=== PATIENT | male | born 1960 | race American Indian/Alaskan Native ===

== ENCOUNTER 2017-07-14 11:06 | Emergency (ER) | payer MEDICARE ==
[2017-07-14 11:18] VITALS: RESP 18; TEMP 98.1
[2017-07-14] MEDS ORDERED: Oxycodone/Acetaminophen 5/325 mg Tab PO STA (11:57)
--- NOTE | 2017-07-14 12:03 | ED PDOC ---
Arrival/HPI - General Chief Complaint: Lower Extremity Problem/Injury Time Seen by Provider: 07/14/17 11:22 Historian: Patient - History of Present Illness Narrative History of Present Illness (Text): 56 y/o male w/ pmhx of HTN? 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 Denying collapse / overlying rash or other joint pain . 07/14/17 12:03 Time/Duration: 24 hours Past Medical History - Infectious Disease Hx of Infectious Diseases: None - HEENT Hx HEENT Disorder: No - Renal Hx Renal Disorder: No - Musculoskeletal/Rheumatological Other/Comment: LEFT KNEE SURGERY AND BACK SURGERY - Psychiatric Hx Substance Use: No - Anesthesia Hx Anesthesia: No Hx Anesthesia Reactions: No Hx Malignant Hyperthermia: No Family/Social History - Physician Review Nursing Documentation Reviewed: Yes Family/Social History: No Known Family HX Smoking Status: Former Smoker Hx Alcohol Use: No Hx Substance Use: No Allergies/Home Meds Allergies/Adverse Reactions: Allergies No Known Allergies Allergy (Verified 07/14/17 11:18) Review of Systems - Physician Review All systems were reviewed & negative as marked: Yes - Review of Systems Constitutional: Normal Eyes: Normal ENT: Normal Respiratory: Normal Cardiovascular: Normal Gastrointestinal: Normal Genitourinary Male: Normal Musculoskeletal: Joint Swelling Skin: Normal Neurological: Normal Endocrine: Normal Hemo/Lymphatic: Normal Psychiatric: Normal Physical Exam Vital Signs Reviewed: Yes Vital Signs Temp Pulse Resp BP Pulse Ox 07/14/17 13:07 74 18 155/79 H 98 07/14/17 11:20 98.1 F 79 18 158/89 H 97 07/14/17 11:12 98.1 F 79 18 158/89 H 98 Temperature: Afebrile Blood Pressure: Normal Pulse: Regular Respiratory Rate: Normal Appearance: Positive for: Well-Appearing, Non-Toxic, Comfortable Pain Distress: None Mental Status: Positive for: Alert and Oriented X 3 - Systems Exam Head: Present: Atraumatic, Normocephalic Pupils: Present: PERRL Extroacular Muscles: Present: EOMI Conjunctiva: Present: Normal Mouth: Present: Moist Mucous Membranes Neck: Present: Normal Range of Motion Respiratory/Chest: Present: Clear to Auscultation, Good Air Exchange. No: Respiratory Distress, Accessory Muscle Use Cardiovascular: Present: Regular Rate and Rhythm, Normal S1, S2. No: Murmurs Abdomen: Present: Normal Bowel Sounds. No: Tenderness, Distention, Peritoneal Signs Back: Present: Normal Inspection Upper Extremity: Present: Normal Inspection. No: Cyanosis, Edema Lower Extremity: Present: Other (+ ballottement, + relative valgus laxity, + mildine patellar /lateral joint line ttp ). No: Edema Neurological: Present: GCS=15, CN II-XII Intact, Speech Normal, Motor Func Grossly Intact, Normal Sensory Function, Normal Cerebellar Funct, Norm Deep Tendon Reflexes, Gait Normal Skin: Present: Warm, Dry, Normal Color. No: Rashes Psychiatric: Present: Alert, Oriented x 3, Normal Insight, Normal Concentration Medical Decision Making ED Course and Treatment: 07/14/17 12:18 likely lateral collateral ligament tendinities , w/ inflammatory edema will d/c w/ R.I.C.E. directions/orthopedic f/u - RAD Interpretation Radiology Orders: 07/14/17 12:09 KNEE WITH PATELLA LEFT 3 VIEW [RAD] Stat - Medication Orders Current Medication Orders: Discontinued Medications Famotidine (Pepcid) 20 mg PO STAT STA Stop: 07/14/17 11:55 Last Admin: 07/14/17 12:24 Dose: 20 mg Ibuprofen (Motrin Tab) 800 mg PO STAT STA Stop: 07/14/17 11:55 Last Admin: 07/14/17 12:24 Dose: 800 mg Oxycodone/Acetaminophen (Percocet 5/325 Mg Tab) 1 tab PO STAT STA Stop: 07/14/17 11:58 Last Admin: 07/14/17 12:24 Dose: 1 tab MAR Pain Assessment Document 07/14/17 12:24 GMD (Rec: 07/14/17 12:24 [place] [facility] [id number] Pain Reassessment Is this a pain reassessment? No Sleep Is patient sleeping during reassessment? No Presence of Pain Presence of Pain Yes Pain Scale Used Pain Scale Used Numeric Location Left, Right or Bilateral Left Pain Location Body Site Knee Disposition/Present on Arrival - Present on Arrival Any Indicators Present on Arrival: No History of DVT/PE: No History of Uncontrolled Diabetes: No Urinary Catheter: No History of Decub. 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 Your pain shoudl improve in 1-[address] brown for an appointment or a provider within your network. Prescriptions: Famotidine [Pepcid] 20 mg PO BID PRN #20 tab PRN Reason: Dyspepsia Ibuprofen [Motrin] 600 mg PO Q6 PRN #50 tab PRN Reason: moderate pain oxyCODONE/Acetaminophen [Percocet 5/325 mg Tab] 1 ea PO Q8 PRN 3 Days #12 tab PRN Reason: Pain, Moderate (4-7) Referrals: Dudley Brown MD [Staff Provider] - Follow up with primary Forms: [employer] (Turkish)
[2017-07-14 13:14] VITALS: BP 155/79; PULSE 74; O2SAT 98
--- NOTE | 2017-07-14 18:28 | RAD ---
PROCEDURE: Left Knee Radiographs. HISTORY: Pain. COMPARISON: None. FINDINGS: BONES: No acute fracture or destructive bony lesion identified. JOINTS: Marked joint space narrowing seen in all 3 joint compartments with prominent osteophyte development and articular cortical sclerosis compatible with advanced degenerative joint disease. JOINT EFFUSION: None. OTHER FINDINGS: None. IMPRESSION: Advanced osteoarthritis, tricompartmental. No fracture or dislocation.
== END 2017-07-14 14:24 | disposition home or self-care (01) ==
LOC: ED 11:06
DX: M17.12 Unilateral primary osteoarthritis, left knee (principal); Z87.891 Personal history of nicotine dependence; M23.8X2 Other internal derangements of left knee

== ENCOUNTER 2017-07-31 17:54 | Observation (INO) | payer MEDICARE, OTHER ==
[2017-07-31 18:12] VITALS: BMI 38.6
[2017-07-31 18:41] LABS: BASO # 0.02 K/mm3 (0.0-2.0); BASO % 0.3 % (0.0-3.0); EOS # 0.1 (0.0-0.7); EOS % 1.4 % (1.5-5.0); GRAN # 4.14 (1.4-6.5); GRAN % 65.6 % (50.0-68.0); HEMATOCRIT 48.8 % (42.0-52.0); LYMPH # 1.5 (1.2-3.4); MEAN CELL VOLUME 93.7 fl (80.0-105.0); MEAN CORPUSCULAR HEMOGLOBIN 31.5 pg (25.0-35.0); MEAN CORPUSCULAR HGB CONC 33.6 g/dl (31.0-37.0); MEAN PLATELET VOLUME 11.3 fl (7.0-11.0); MONO # 0.6 (0.1-0.6); MONO % 9.7 % (1.0-6.0); RED CELL DISTRIBUTION WIDTH 13.7 % (11.5-14.5); WHITE BLOOD COUNT 6.3 10^3/ul (4.5-11.0)
[2017-07-31 18:49] LABS: ALB/GLOB RATIO 1.3 (1.1-1.8); ALKALINE PHOSPHATASE 75 U/L (38-126); ALT/SGPT 28 U/L (7-56); AST/SGOT 28 U/L (17-59); BILIRUBIN,TOTAL 0.8 mg/dL (0.2-1.3); BLOOD UREA NITROGEN 14 mg/dL (7-21); CALCIUM 9.2 mg/dL (8.4-10.5); CARBON DIOXIDE 30 mmol/L (21-33); CHLORIDE 105 mmol/L (98-107); GFR AFRICAN-AMERICAN > 60; GLUCOSE,RANDOM 92 mg/dL (70-110); POTASSIUM 4.1 mmol/L (3.6-5.0); SODIUM 142 mmol/L (132-148)
[2017-07-31 18:59] LABS: TROPONIN I < 0.01 ng/mL
[2017-07-31] MEDS ORDERED: Simethicone 80 mg Chewtab PO STA (21:35)
--- NOTE | 2017-07-31 21:47 | ED PDOC ---
Arrival/HPI - General Historian: Patient - History of Present Illness Time/Duration: Prior to Arrival, Other (20 hours) Symptom Onset: Gradual Symptom Course: Unchanged Quality: Aching Severity Level: 7, 8 Activities at Onset: Rest, Light Context: Home <Felicia Gamble - Last Filed: 07/31/17 23:00> <Jacob Roth Beverly - Last Filed: 08/02/17 06:47> - General Chief Complaint: Chest Pain Time Seen by Provider: 07/31/17 17:58 - History of Present Illness Narrative History of Present Illness (Text): 07/31/17 21:51 56 years old male with hx of lumbar surgery, smokes cigars, presents for left sided chest pain for past 20 hours. Pt states that its achy, rates it 7-8/10, constant, denies radiation of pain, sob, diaphoresis, palpitations, heartburn, syncope, nausea, vomiting, abdominal pain, headache, cough, urinary symptoms, diarrhea/constipation. Pt had a stress test in 2000, which was negative. Pt complains of going through a divorce, which is a difficult time for him. Family history of HTN (Felicia Gamble) Associated Symptoms (Text): 07/31/17 22:10 denies radiation of pain, sob, diaphoresis, palpitations, syncope, nausea, vomiting, abdominal pain, headache, cough, urinary symptoms, diarrhea/ constipation. Pt c/o mild dyspepsia and gas. (Felicia Gamble) Past Medical History - Provider Review Nursing Documentation Reviewed: Yes - Infectious Disease Hx of Infectious Diseases: None - Cardiac Hx Cardiac Disorders: No - Pulmonary Hx Respiratory Disorders: No - Neurological Hx Neurological Disorder: No - HEENT Hx HEENT Disorder: No - Renal Hx Renal Disorder: No - Endocrine/Metabolic Hx Endocrine Disorders: No - Hematological/Oncological Hx Blood Disorders: No - Integumentary Hx Dermatological Disorder: No - Musculoskeletal/Rheumatological Hx Musculoskeletal Disorders: Yes Hx Arthritis: Yes (l knee) Other/Comment: LEFT KNEE SURGERY; BACK SURGERY; left hand surgery - Gastrointestinal Hx Gastrointestinal Disorders: No - Genitourinary/Gynecological Hx Genitourinary Disorders: No - Psychiatric Hx Psychophysiologic Disorder: No Hx Substance Use: No - Surgical History Hx Joint Replacement: Yes Other/Comment: left hand; left knee - Anesthesia Hx Anesthesia: No Hx Anesthesia Reactions: No Hx Malignant Hyperthermia: No <Felicia Gamble - Last Filed: 07/31/17 23:00> Family/Social History - Physician Review Nursing Documentation Reviewed: Yes Family/Social History: Hypertension Smoking Status: cigar 2/wk Hx Alcohol Use: Yes Frequency of alcohol use: Socially Hx Substance Use: No <Felicia Gamble - Last Filed: 07/31/17 23:00> Allergies/Home Meds <Felicia Gamble - Last Filed: 07/31/17 23:00> <Jacob Roth Beverly - Last Filed: 08/02/17 06:47> Allergies/Adverse Reactions: Allergies No Known Allergies Allergy (Verified 07/14/17 11:18) Review of Systems - Physician Review All systems were reviewed & negative as marked: Yes - Review of Systems Constitutional: absent: Fatigue, Fevers Eyes: absent: Vision Changes ENT: absent: Hearing Changes Respiratory: absent: SOB, Cough Cardiovascular: Chest Pain. absent: Palpitations, Syncope Gastrointestinal: absent: Abdominal Pain, Constipation, Nausea, Vomiting Genitourinary Male: absent: Dysuria, Hematuria Musculoskeletal: absent: Back Pain Skin: absent: Rash Neurological: absent: Headache, Dizziness Endocrine: absent: Diaphoresis Psychiatric: absent: Anxiety <Felicia Gamble - Last Filed: 07/31/17 23:00> Physical Exam Vital Signs Reviewed: Yes Temperature: Afebrile Blood Pressure: Normal Pulse: Regular Respiratory Rate: Normal Appearance: Positive for: Well-Appearing Pain Distress: Mild Mental Status: Positive for: Alert and Oriented X 3 - Systems Exam Head: Present: Atraumatic, Normocephalic Pupils: Present: PERRL Extroacular Muscles: Present: EOMI Conjunctiva: Present: Normal Mouth: Present: Moist Mucous Membranes Pharnyx: No: ERYTHEMA Neck: Present: Normal Range of Motion Respiratory/Chest: Present: Clear to Auscultation. No: Respiratory Distress Cardiovascular: Present: Regular Rate and Rhythm, Normal S1, S2. No: Murmurs, Tachycardic Abdomen: Present: Normal Bowel Sounds. No: Tenderness, Distention Upper Extremity: No: Edema Lower Extremity: Present: NORMAL PULSES. No: Edema, CALF TENDERNESS Neurological: Present: GCS=15, Speech Normal Skin: Present: Warm, Dry Psychiatric: Present: Alert, Oriented x 3, Anxious <Felicia Gamble - Last Filed: 07/31/17 23:00> Vital Signs Temp Pulse Resp BP Pulse Ox 08/01/17 00:06 98.0 F 70 17 132/72 98 07/31/17 22:36 73 17 127/81 95 07/31/17 20:10 70 18 114/77 98 07/31/17 18:10 98.6 F 78 18 109/82 98 Medical Decision Making - Lab Interpretations I have reviewed the lab results: Yes Interpretation: All labs normal - RAD Interpretation : ED Physician - EKG Interpretation Interpreted by ED Physician: Yes Type: 12 lead EKG Comparison: No previous EKG avail. - Transfer of Care Patient signed out to Dr:: Carrie <Felicia Gamble - Last Filed: 07/31/17 23:00> <Jacob Roth - Last Filed: 08/02/17 06:47> ED Course and Treatment: 07/31/17 21:45 56 years old male, denies PMH, presents for chest pain: - CBC, CMP, EKG, Cardiac iso - CXR - Pepcid, Simethicone - HEART Score 3 - Reassess and dispo 07/31/17 22:10 Initial trop neg, given pt's age, + smoker, family hx of heart disease, will put in patient to Obs-Tele. 07/31/17 22:[address] Butler and medical radiation dosimetrist. (Felicia Gamble) 07/31/17 22:58 Pt seen and evaluated with medical radiation dosimetrist. Aware and agree with HPI, clinical findings, plan, and management. (Jacob Roth) - Lab Interpretations Narrative Lab Interpretation (Text): 07/31/17 22:13 Trop negx1 (Felicai Gamble) Lab Results: 07/31/17 18:10 07/31/17 18:10 Lab Results 07/31/17 18:10: Lipase 64 07/31/17 18:10: Sodium 142, Potassium 4.1, Chloride 105, Carbon Dioxide 30, Anion Gap 11, BUN 14, Creatinine 1.2, Est GFR ( Amer) > 60, Est GFR (Non- Af Amer) > 60, Random Glucose 92, Calcium 9.2, Total Bilirubin 0.8, AST 28, ALT 28, Alkaline Phosphatase 75, Lactate Dehydrogenase 522, Total Creatine Kinase 180, Troponin I < 0.01, Total Protein 8.0, Albumin 4.5, Globulin 3.5, Albumin/ Globulin Ratio 1.3 07/31/17 18:10: WBC 6.3, RBC 5.21, Hgb 16.4, Hct 48.8, MCV 93.7, MCH 31.5, MCHC 33.6, RDW 13.7, Plt Count 213, MPV 11.3 H, Gran % 65.6, Lymph % (Auto) 23.0, Young % (Auto) 9.7 H, Eos % (Auto) 1.4 L, Baso % (Auto) 0.3, Gran # 4.14, Lymph # 1.5, Young # 0.6, Eos # 0.1, Baso # 0.02 - RAD Interpretation Narrative RAD Interpretations (Text): 07/31/17 22:13 CXR neg for infiltrate (Felicia Gamble) Radiology Orders: 07/31/17 19:57 CXR [CHEST PORTABLE] [RAD] Stat - EKG Interpretation EKG Interpretation (Text): 07/31/17 22:15 EKG Nsr (Felicia Gamble) - Medication Orders Current Medication Orders: Discontinued Medications Acetaminophen (Tylenol 325mg Tab) 650 mg PO Q6H PRN PRN Reason: Headache Aspirin (Aspirin Chewable) 81 mg PO STAT STA Stop: 07/31/17 21:47 Last Admin: 07/31/17 21:52 Dose: 81 mg Aspirin (Ecotrin) 81 mg PO DAILY [facility] Last Admin: 08/01/17 10:54 Dose: 81 mg Famotidine (Pepcid) 40 mg PO STAT STA Stop: 07/31/17 21:36 Last Admin: 07/31/17 21:52 Dose: 40 mg Heparin Sodium (Porcine) (Heparin) 5,000 units SC Q12 MODE PRN Reason: Protocol Last Admin: 08/01/17 10:55 Dose: Not Given Non-Admin Reason: Patient Refused Ketorolac Tromethamine (Toradol) 30 mg IM STAT STA Stop: 07/31/17 20:04 Last Admin: 07/31/17 20:22 Dose: Ketorolac Tromethamine (Toradol) 30 mg IVP STAT STA Stop: 07/31/17 20:10 Last Admin: 07/31/17 20:25 Dose: 30 mg MAR Pain Assessment Document 07/31/17 20:25 IT (Rec: 07/31/17 20:26 IT [facility] [id number]) Pain Reassessment Is this a pain reassessment? No Sleep Is patient sleeping during reassessment? No Presence of Pain Presence of Pain Yes Pain Scale Used Pain Scale Used Numeric IVP Administration Document 07/31/17 20:25 IT (Rec: 07/31/17 20:26 IT [facility] [id number]) Charges for Administration # of IVP Administrations 1 Nitroglycerin (Nitrostat Sl Tab) 0.4 mg SL STAT STA Stop: 07/31/17 22:03 Last Admin: 07/31/17 22:13 Dose: 0.4 mg Nitroglycerin (Nitrostat Sl Tab) 0.4 mg SL STAT STA Stop: 08/01/17 01:28 Last Admin: 08/01/17 05:24 Dose: Pantoprazole Sodium (Protonix Ec Tab) 40 mg PO 0600 MODE Last Admin: 08/01/17 06:09 Dose: 40 mg Simethicone (Mylicon Chew Tab) 80 mg PO STAT STA Stop: 07/31/17 21:36 Last Admin: 07/31/17 21:52 Dose: 80 mg - PA / TOOL AND FIXTURE REPAIRER / Resident Statement RIAZ has reviewed & agrees with the documentation as recorded. RIAZ has examined the patient and agrees with the treatment plan. <Felicia Gamble - Last Filed: 07/31/17 23:00> - PA / TOOL AND FIXTURE REPAIRER / Resident Statement RIAZ has examined the patient and agrees with the treatment plan. <Jacob Roth - Last Filed: 08/02/17 06:47> Disposition/Present on Arrival - Present on Arrival Any Indicators Present on Arrival: No History of DVT/PE: No History of Uncontrolled Diabetes: No Urinary Catheter: No History of Decub. Ulcer: No History Surgical Site Infection Following: None - Disposition Have Diagnosis and Disposition been Completed?: Yes Disposition Time: 22:52 Patient Plan: Observation, Telemetry <Felicia Gamble - Last Filed: 07/31/17 23:00> <Jacob Roth - Last Filed: 08/02/17 06:47> - Disposition Diagnosis: Chest pain Disposition: HOSPITALIZED Condition: FAIR
[2017-08-01 00:08] VITALS: O2SAT 98
--- NOTE | 2017-08-01 00:16 | CP.PCM.HP ---
<Leana Dc - Last Filed: 08/01/17 02:25> History of Present Illness - History of Present Illness History of Present Illness: CC: I'm having chest pain" HPI: Patient is a 56 year old male with past medical history of chronic L knee pain, obesity presents the the ED for chest pain that started last night. Patient states that the pain is mid sternal, intermittent and does not radiate. Initially attributed the pain to gas because he has had this pain before, at that time when he burped the pain resolved. However the pain did not improve this time which is why he came in to be evaluated. Patient states that pain was 7-8/10 on pain scale prior to arrival. Received nitroglycerin SL in ED and chest pain is currently 2-3/10 on pain scale. Offers no other complaints at this time. Denies fevers, chills, N/V, diaphoresis, palpitations, sob, abdominal pain, changes in bowel habits, urinary symptoms. Denies any heavy lifting or trauma. ED Course: Toradol 30mg, ASA 81mg, Nitroglycerin 0.4mg SL, Simethicone 80mg, Pepcid 40mg PMD: None Allergies: NKDA Medications: Ibuprofen 600mg prn Medical History: Chronic Left Knee pain Surgical History: Shoulder surgery, lumbar surgery, hand surgery Social Hx: Smokes cigars 2x/week, denies alcohol or drug use; works for private [employer] Family Hx: Hypertension Present on Admission - Present on Admission Any Indicators Present on Admission: No Review of Systems - Review of Systems All systems: reviewed and no additional remarkable complaints except - Constitutional Constitutional: absent: Chills, Fever - EENT Eyes: absent: Blurred Vision Ears: absent: Dizziness - Cardiovascular Cardiovascular: Chest Pain. absent: Dyspnea, Edema, Lightheadedness, Palpitations - Respiratory Respiratory: Dyspnea. absent: Cough, Wheezing - Gastrointestinal Gastrointestinal: absent: Abdominal Pain, Bloating, Constipation, Diarrhea, Nausea, Vomiting - Genitourinary Genitourinary: absent: Dysuria - Neurological Neurological: absent: Dizziness, Numbness, Headaches - Psychiatric Psychiatric: absent: Change in Appetite Past Patient History - Infectious Disease Hx of Infectious Diseases: None - Past Social History Smoking Status: cigar 2/wk - CARDIAC Hx Cardiac Disorders: No - PULMONARY Hx Respiratory Disorders: No - NEUROLOGICAL Hx Neurological Disorder: No - HEENT Hx HEENT Problems: No - RENAL Hx Chronic Kidney Disease: No - ENDOCRINE/METABOLIC Hx Endocrine Disorders: No - HEMATOLOGICAL/ONCOLOGICAL Hx Blood Disorders: No - INTEGUMENTARY Hx Dermatological Problems: No - MUSCULOSKELETAL/RHEUMATOLOGICAL Hx Musculoskeletal Disorders: Yes Hx Arthritis: Yes (l knee) Other/Comment: LEFT KNEE SURGERY; BACK SURGERY; left hand surgery - GASTROINTESTINAL Hx Gastrointestinal Disorders: No - GENITOURINARY/GYNECOLOGICAL Hx Genitourinary Disorders: No - PSYCHIATRIC Hx Psychophysiologic Disorder: No Hx Substance Use: No - SURGICAL HISTORY Hx Joint Replacement: Yes Other/Comment: left hand; left knee - ANESTHESIA Hx Anesthesia: No Hx Anesthesia Reactions: No Hx Malignant Hyperthermia: No Meds Allergies/Adverse Reactions: Allergies Allergy/AdvReac Type Severity Reaction Status Date / Time No Known Allergies Allergy Verified 07/14/17 11:18 Physical Exam - Constitutional Appears: Well, No Acute Distress Additional comments: Obese - Head Exam Head Exam: ATRAUMATIC, NORMAL INSPECTION - Eye Exam Eye Exam: EOMI, Normal appearance Pupil Exam: NORMAL ACCOMODATION, PERRL - ENT Exam ENT Exam: Mucous Membranes Moist - Neck Exam Neck exam: Positive for: Full Rom - Respiratory Exam Respiratory Exam: Clear to Auscultation Bilateral, NORMAL BREATHING PATTERN. absent: Rales, Rhonchi, Wheezes - Cardiovascular Exam Cardiovascular Exam: REGULAR RHYTHM, +S1, +S2. absent: Systolic Murmur - GI/Abdominal Exam GI & Abdominal Exam: Normal Bowel Sounds, Soft. absent: Guarding, Rebound, Rigid, Tenderness - Extremities Exam Extremities exam: Positive for: normal inspection, pedal pulses present. Negative for: calf tenderness - Back Exam Back exam: NORMAL INSPECTION. absent: CVA tenderness (L), CVA tenderness (R) - Neurological Exam Neurological exam: Alert, Normal Gait, Oriented x3 - Psychiatric Exam Psychiatric exam: Normal Affect, Normal Mood - Skin Skin Exam: Dry, Normal Color, Warm Results - Vital Signs Recent Vital Signs: Last Vital Signs Temp 98.0 F 08/01/17 00:06 Pulse 70 08/01/17 00:06 Resp 17 08/01/17 00:06 BP 132/72 08/01/17 00:06 Pulse Ox 98 08/01/17 00:06 - Labs Result Diagrams: 07/31/17 18:10 07/31/17 18:10 Assessment & Plan - Assessment and Plan (Free Text) Assessment: 56 year old male with past medical history of chronic L knee pain, obesity presents the the ED for mid-sternal chest pain that started last night. Plan: 1. Chest pain r/o ACS -Stable, afebrile -Place on observation, Monitor on telemetry -Currently asymptomatic -EKG showed NSR 75bpm with low voltage -First troponin <0.01, Trend troponins q8H x 2 -Continue ASA 81mg daily -F/U Lipid panel, hga1c, TSH/Free T4 -Echo ordered -CXR completed, f/u official read -Cardiology on consult, f/u recommendations GI/DVT ppx -Protonix 40mg PO daily -SCDs <Chacha Butler - Last Filed: 08/01/17 02:55> Results - Vital Signs Recent Vital Signs: Last Vital Signs Temp 98.0 F 08/01/17 00:06 Pulse 70 08/01/17 00:06 Resp 17 08/01/17 00:06 BP 132/72 08/01/17 00:06 Pulse Ox 98 08/01/17 00:06 - Labs Result Diagrams: 07/31/17 18:10 07/31/17 18:10 Attending/Attestation - Attestation I have personally seen and examined this patient.: Yes I have fully participated in the care of the patient.: Yes I have reviewed all pertinent clinical information: Yes Notes (Text): 08/01/17 02:53 Agree with documentation and orders placed.
[2017-08-01 03:07] VITALS: RESP 20
[2017-08-01] MEDS ORDERED: Pantoprazole 40 mg EC Tab PO SCH (06:00)
--- NOTE | 2017-08-01 08:35 | RAD ---
HISTORY: chest pain COMPARISON: No prior. FINDINGS: LUNGS: No active pulmonary disease. PLEURA: No significant pleural effusion identified, no pneumothorax apparent. CARDIOVASCULAR: Normal. OSSEOUS STRUCTURES: No significant abnormalities. VISUALIZED UPPER ABDOMEN: Normal. OTHER FINDINGS: None. IMPRESSION: No active disease.
[2017-08-01 09:14] LABS: ALB/GLOB RATIO 1.2 (1.1-1.8); ALKALINE PHOSPHATASE 71 U/L (38-126); ALT/SGPT 26 U/L (7-56); AST/SGOT 19 U/L (17-59); BILIRUBIN,TOTAL 1.2 mg/dL (0.2-1.3); BLOOD UREA NITROGEN 13 mg/dL (7-21); CALCIUM 9.1 mg/dL (8.4-10.5); CARBON DIOXIDE 27 mmol/L (21-33); CHLORIDE 107 mmol/L (98-107); CHOLESTEROL 149 mg/dL (130-200); GFR AFRICAN-AMERICAN > 60; GLUCOSE,RANDOM 102 mg/dL (70-110); MAGNESIUM 2.1 mg/dL (1.7-2.2); PHOSPHOROUS 3.3 mg/dL (2.5-4.5); SODIUM 141 mmol/L (132-148); TOTAL PROTEIN 7.2 g/dL (5.8-8.3)
[2017-08-01 09:27] LABS: TROPONIN I < 0.01 ng/mL
[2017-08-01 09:45] LABS: T4 6.8 ug/dL (5.5-11.0)
[2017-08-01 09:58] LABS: THYROID STIMULATING HORMONE 1.81 mIU/mL (0.46-4.68)
[2017-08-01 12:03] VITALS: BP 154/99; TEMP 98.8
--- NOTE | 2017-08-01 12:54 | CARD ---
APPROVED REPORT EXAM: Two-dimensional and M-mode echocardiogram with Doppler and color Doppler. INDICATION Chest Pain 2D DIMENSIONS Left Atrium (2D)4.2 (1.6-4.0cm)IVSd1.6 (0.7-1.1cm) LVDd4.7 (3.9-5.9cm)PWd1.5 (0.7-1.1cm) LVDs3.0 (2.5-4.0cm)FS (%) 34.8 % LVEF (%)64.0 (>50%) M-Mode DIMENSIONS Aortic Root3.20 (2.2-3.7cm)Aortic Cusp Exc.2.10 (1.5-2.0cm) Aortic Valve AoV Peak Rozhrjlw811.0cm/Judith Peak GR.6mmHg Mitral Valve MV E Jnbhcfzv47.8cm/sMV A Vigmaxnl17.2cm/sE/A ratio0.8 TDI E/Lateral E'0.0E/Medial E'0.0 Tricuspid Valve TR Peak [id number]/sRAP [id number] Peak Gr.20mmHg [id number] LEFT VENTRICLE The left ventricle is normal size. There is mild concentric left ventricular hypertrophy. The left ventricular function is normal. The left ventricular ejection fraction is within the normal range. There is normal LV segmental wall motion. Transmitral Doppler flow pattern is Grade I-abnormal relaxation pattern. RIGHT VENTRICLE The right ventricle is normal size. There is normal right ventricular wall thickness. The right ventricular systolic function is normal. ATRIA The left atrium is borderline dilated. The right atrium size is normal. AORTIC VALVE The aortic valve is normal in structure. No aortic regurgitation is present. There is no aortic valvular stenosis. MITRAL VALVE The mitral valve is normal in structure. There is no mitral valve regurgitation noted. TRICUSPID VALVE The tricuspid valve is normal in structure. There is trace tricuspid regurgitation. GREAT VESSELS The aortic root is normal in size. The IVC is normal in size and collapses >50% with inspiration. PERICARDIAL EFFUSION There is no pericardial effusion. <Conclusion> The left ventricle is normal size. There is mild concentric left ventricular hypertrophy. The left ventricular function is normal. The left ventricular ejection fraction is within the normal range. There is normal LV segmental wall motion. Transmitral Doppler flow pattern is Grade I-abnormal relaxation pattern.
[2017-08-01 15:36] VITALS: PULSE 76
--- NOTE | 2017-08-01 21:03 | CP.PCM.DIS ---
<Stone Orona - Last Filed: 08/01/17 20:56> Provider - Provider Date of Admission: 07/31/17 22:55 Attending physician: Jackie Cason MD Time Spent in preparation of Discharge (in minutes): 40 Hospital Course - Lab Results Lab Results: Most Recent Lab Values WBC 6.3 10^3/ul (4.5-11.0) 07/31/17 18:10 RBC 5.21 10^6/uL (3.5-6.1) 07/31/17 18:10 Hgb 16.4 g/dL (14.0-18.0) 07/31/17 18:10 Hct 48.8 % (42.0-52.0) 07/31/17 18:10 MCV 93.7 fl (80.0-105.0) 07/31/17 18:10 MCH 31.5 pg (25.0-35.0) 07/31/17 18:10 MCHC 33.6 g/dl (31.0-37.0) 07/31/17 18:10 RDW 13.7 % (11.5-14.5) 07/31/17 18:10 Plt Count 213 10^3/uL (120.0-450.0) 07/31/17 18:10 MPV 11.3 fl (7.0-11.0) H 07/31/17 18:10 Gran % 65.6 % (50.0-68.0) 07/31/17 18:10 Lymph % (Auto) 23.0 % (22.0-35.0) 07/31/17 18:10 [place] % (Auto) 9.7 % (1.0-6.0) H 07/31/17 18:10 Eos % (Auto) 1.4 % (1.5-5.0) L 07/31/17 18:10 Baso % (Auto) 0.3 % (0.0-3.0) 07/31/17 18:10 Gran # 4.14 (1.4-6.5) 07/31/17 18:10 Lymph # 1.5 (1.2-3.4) 07/31/17 18:10 [place] # 0.6 (0.1-0.6) 07/31/17 18:10 Eos # 0.1 (0.0-0.7) 07/31/17 18:10 Baso # 0.02 K/mm3 (0.0-2.0) 07/31/17 18:10 D-Dimer, Quantitative < 200 ng/mL (0-243) 08/01/17 12:30 Sodium 141 mmol/L (132-148) 08/01/17 08:55 Potassium 4.0 mmol/L (3.6-5.0) 08/01/17 08:55 Chloride 107 mmol/L (98-107) 08/01/17 08:55 Carbon Dioxide 27 mmol/L (21-33) 08/01/17 08:55 Anion Gap 11 (10-20) 08/01/17 08:55 BUN 13 mg/dL (7-21) 08/01/17 08:55 Creatinine 1.1 mg/dl (0.8-1.5) 08/01/17 08:55 Est GFR ( Amer) > 60 08/01/17 08:55 Est GFR (Non-Af Amer) > 60 08/01/17 08:55 Random Glucose 102 mg/dL (70-110) 08/01/17 08:55 Hemoglobin A1c 5.5 % (4.2-6.5) 08/01/17 01:58 Calcium 9.1 mg/dL (8.4-10.5) 08/01/17 08:55 Phosphorus 3.3 mg/dL (2.5-4.5) 08/01/17 08:55 Magnesium 2.1 mg/dL (1.7-2.2) 08/01/17 08:55 Total Bilirubin 1.2 mg/dL (0.2-1.3) 08/01/17 08:55 AST 19 U/L (17-59) 08/01/17 08:55 ALT 26 U/L (7-56) 08/01/17 08:55 Alkaline Phosphatase 71 U/L (38-126) 08/01/17 08:55 Lactate Dehydrogenase 522 U/L (333-699) 07/31/17 18:10 Total Creatine Kinase 180 U/L (35-230) 07/31/17 18:10 Troponin I < 0.01 ng/mL 08/01/17 08:55 C-React Prot High Sens 1.14 mg/L (1.00-3.00) 08/01/17 08:55 Total Protein 7.2 g/dL (5.8-8.3) 08/01/17 08:55 Albumin 3.9 g/dL (3.0-4.8) 08/01/17 08:55 Globulin 3.3 gm/dL 08/01/17 08:55 Albumin/Globulin Ratio 1.2 (1.1-1.8) 08/01/17 08:55 Triglycerides 82 mg/dL (35-160) 08/01/17 08:55 Cholesterol 149 mg/dL (130-200) 08/01/17 08:55 LDL Cholesterol Direct 85 mg/dL (0-129) 08/01/17 08:55 HDL Cholesterol 44 mg/dL (29-60) 08/01/17 08:55 Lipase 64 U/L (23-300) 07/31/17 18:10 Thyroxine (T4) 6.8 ug/dL (5.5-11.0) 08/01/17 08:55 TSH 3rd Generation 1.81 mIU/mL (0.46-4.68) 08/01/17 08:55 - Hospital Course Hospital Course: Mr Mcnamara is a 56 year old male with past medical history of chronic L knee pain s/p surgery for sports injury, obesity and occasional tobacco (cigar) use presents the the ED for chest pain x2 days after a heavy meal. Patient states that the pain is mid sternal, intermittent and does not radiate. Initially attributed the pain to gas because he has had this pain before, at that time when he burped the pain resolved. However the pain did not improve this time which is why he came in to be evaluated, and he has been feeling bloated and unable to burp. Patient states that pain was 7-8/10 on pain scale prior to arrival. Received nitroglycerin SL in ED and chest pain improved to 2-3/10 on pain scale. EKG in ED showed NSR with no ST wave or interval changes. Patient was transferred to telemetry for monitoring. Cardiology was consulted. Echo was done and showed EF 64%with mild concentric LVH and grade- I abnormal relaxation pattern. Troponin I was negative x3. A1C 5.5, Lipid panel was WNL, and TSH was WNL. pt was feeling better this morning and denied any complaints. Pt was educated on tobacco cessation and on swapping NSAIDS with tylenol to avoid gastritis that would mimic chest pain. pt will follow up at [facility] since he is new to [place] and hasn't established care with a PMD. - Date & Time of H&P Date of H&P: 08/01/17 Time of H&P: 00:10 Discharge Exam - Head Exam Head Exam: ATRAUMATIC, NORMAL INSPECTION - Eye Exam Eye Exam: EOMI, Normal appearance, PERRL Pupil Exam: NORMAL ACCOMODATION - ENT Exam ENT Exam: Mucous Membranes Moist, Normal Exam - Neck Exam Neck exam: Full Rom, Normal Inspection - Respiratory Exam Respiratory Exam: Clear to PA & Lateral, NORMAL BREATHING PATTERN. absent: Rales, Rhonchi, Wheezes, Respiratory Distress - Cardiovascular Exam Cardiovascular Exam: RRR, +S1, +S2. absent: Gallop, Rubs, Systolic Murmur - GI/Abdominal Exam GI & Abdominal Exam: Normal Bowel Sounds, Soft. absent: Distended, Firm, Guarding, Rigid, Tenderness Additional comments: obese body habitus - Extremities Exam Extremities exam: full ROM, normal inspection - Back Exam Back exam: NORMAL INSPECTION - Neurological Exam Neurological exam: Alert, Normal Gait, Oriented x3 - Psychiatric Exam Psychiatric exam: Normal Affect, Normal Mood - Skin Skin Exam: Normal Color, Warm Discharge Plan - Discharge Medications Prescriptions: Pantoprazole [Protonix EC Tab] 40 mg PO DAILY #30 ect - Follow Up Plan Condition: FAIR Disposition: HOME/ ROUTINE Instructions: Heart Healthy Diet (DC), Cigarette Smoking and Your Health (GEN) , Gastroesophageal Reflux Disease (DC) Additional Instructions: - please follow up at [facility] clinic within 1 week - please take the protonix once daily - please avoid smoking and follow low salt/low fat diet - please avoid taking NSAIDs (take Tylenol instead of Advil, Aleve, Motrin) to avoid gastric ulcers - if you experience worsening of chest pain or shortness of breath, please return to ER for evaluation Referrals: [facility] [Outside] <Jackie Cason - Last Filed: 08/02/17 15:57> Provider - Provider Date of Admission: 07/31/17 22:55 Attending physician: Jackie Cason MD Hospital Course - Lab Results Lab Results: Most Recent Lab Values WBC 6.3 10^3/ul (4.5-11.0) 07/31/17 18:10 RBC 5.21 10^6/uL (3.5-6.1) 07/31/17 18:10 Hgb 16.4 g/dL (14.0-18.0) 07/31/17 18:10 Hct 48.8 % (42.0-52.0) 07/31/17 18:10 MCV 93.7 fl (80.0-105.0) 07/31/17 18:10 MCH 31.5 pg (25.0-35.0) 07/31/17 18:10 MCHC 33.6 g/dl (31.0-37.0) 07/31/17 18:10 RDW 13.7 % (11.5-14.5) 07/31/17 18:10 Plt Count 213 10^3/uL (120.0-450.0) 07/31/17 18:10 MPV 11.3 fl (7.0-11.0) H 07/31/17 18:10 Gran % 65.6 % (50.0-68.0) 07/31/17 18:10 Lymph % (Auto) 23.0 % (22.0-35.0) 07/31/17 18:10 [place] % (Auto) 9.7 % (1.0-6.0) H 07/31/17 18:10 Eos % (Auto) 1.4 % (1.5-5.0) L 07/31/17 18:10 Baso % (Auto) 0.3 % (0.0-3.0) 07/31/17 18:10 Gran # 4.14 (1.4-6.5) 07/31/17 18:10 Lymph # 1.5 (1.2-3.4) 07/31/17 18:10 [place] # 0.6 (0.1-0.6) 07/31/17 18:10 Eos # 0.1 (0.0-0.7) 07/31/17 18:10 Baso # 0.02 K/mm3 (0.0-2.0) 07/31/17 18:10 D-Dimer, Quantitative < 200 ng/mL (0-243) 08/01/17 12:30 Sodium 141 mmol/L (132-148) 08/01/17 08:55 Potassium 4.0 mmol/L (3.6-5.0) 08/01/17 08:55 Chloride 107 mmol/L (98-107) 08/01/17 08:55 Carbon Dioxide 27 mmol/L (21-33) 08/01/17 08:55 Anion Gap 11 (10-20) 08/01/17 08:55 BUN 13 mg/dL (7-21) 08/01/17 08:55 Creatinine 1.1 mg/dl (0.8-1.5) 08/01/17 08:55 Est GFR ( Amer) > 60 08/01/17 08:55 Est GFR (Non-Af Amer) > 60 08/01/17 08:55 Random Glucose 102 mg/dL (70-110) 08/01/17 08:55 Hemoglobin A1c 5.5 % (4.2-6.5) 08/01/17 01:58 Calcium 9.1 mg/dL (8.4-10.5) 08/01/17 08:55 Phosphorus 3.3 mg/dL (2.5-4.5) 08/01/17 08:55 Magnesium 2.1 mg/dL (1.7-2.2) 08/01/17 08:55 Total Bilirubin 1.2 mg/dL (0.2-1.3) 08/01/17 08:55 AST 19 U/L (17-59) 08/01/17 08:55 ALT 26 U/L (7-56) 08/01/17 08:55 Alkaline Phosphatase 71 U/L (38-126) 08/01/17 08:55 Lactate Dehydrogenase 522 U/L (333-699) 07/31/17 18:10 Total Creatine Kinase 180 U/L (35-230) 07/31/17 18:10 Troponin I < 0.01 ng/mL 08/01/17 08:55 C-React Prot High Sens 1.14 mg/L (1.00-3.00) 08/01/17 08:55 Total Protein 7.2 g/dL (5.8-8.3) 08/01/17 08:55 Albumin 3.9 g/dL (3.0-4.8) 08/01/17 08:55 Globulin 3.3 gm/dL 08/01/17 08:55 Albumin/Globulin Ratio 1.2 (1.1-1.8) 08/01/17 08:55 Triglycerides 82 mg/dL (35-160) 08/01/17 08:55 Cholesterol 149 mg/dL (130-200) 08/01/17 08:55 LDL Cholesterol Direct 85 mg/dL (0-129) 08/01/17 08:55 HDL Cholesterol 44 mg/dL (29-60) 08/01/17 08:55 Lipase 64 U/L (23-300) 07/31/17 18:10 Thyroxine (T4) 6.8 ug/dL (5.5-11.0) 08/01/17 08:55 TSH 3rd Generation 1.81 mIU/mL (0.46-4.68) 08/01/17 08:55 Attending/Attestation - Attestation I have personally seen and examined this patient.: Yes I have fully participated in the care of the patient.: Yes I have reviewed all pertinent clinical information, including history, physical exam and plan: Yes Notes (Text): 08/02/17 15:56 Attending note; Patient seen and examined with the resident. Patient is a 56-year-old male admitted with chest pain. Cardiac enzymes negative. Echo normal. Most likely secondary to GERD. Started on Protonix. Patient takes NSAIDs as outpatient. Advised to stop NSAIDs. Patient smokes cigars. Smoking cessation is strongly advised. Obesity; diet, exercise and weight reduction advised. Patient moved to [place] from [place]. Advised to follow-up with PMD of choice within insurance coverage. Diagnosis; GERD Obesity NSAID use/opiate use Chronic arthritis left knee Smoking
--- NOTE | 2017-08-01 22:17 | CON ---
DATE: CARDIOLOGY CONSULTATION REASON FOR CONSULTATION: Chest pain. HISTORY OF PRESENT ILLNESS: The patient is a 56-year-old moderately obese male, who is a smoker, presented because of chest pain, that he described as aching, non-radiating. The patient denies any associated diaphoresis, dizziness or palpitation. The patient stated that the pain occurred after a meal. The patient is unaware of any prior cardiac history. SOCIAL HISTORY: The patient smokes cigar. 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 PAST MEDICAL HISTORY: History of sinus surgery according to ER documentation as well as left knee surgery and left hand surgery. REVIEW OF SYSTEMS: The patient denies productive cough. Unaware of any history of issues with his gallbladder in the past. He denies any vomiting and denies any fever or chills. MEDICATIONS: Aspirin 81 mg once a day, subcutaneous heparin 5000 units twice a day, Protonix 40 mg once a day, and Tylenol 650 mg q.6 hours p.r.n. PHYSICAL EXAMINATION: GENERAL: The patient is a middle-aged male who does not appear to be in acute distress. VITAL SIGNS: Blood pressure 154/99, heart rate 74, temperature 98.8 and respiration 20. HEENT: Normocephalic. CHEST: Clear. HEART: S1 and S2 regular. ABDOMEN: Soft. EXTREMITIES: No edema. LABORATORY DATA: CBC; WBC 6.3, hemoglobin 16.4, hematocrit 48.8 and platelet count . Today's SMA-7 within normal limits. Three sets of troponins are negative. Lipid profile is within normal limits. TSH level is within normal limits. EKG revealed sinus rhythm, minimal voltage criteria for LVH. ASSESSMENT: 1. Chest pain, myocardial infarction was ruled out. 2. Moderate obesity. RECOMMENDATIONS: Continue current aspirin 81 mg once a day, subcutaneous heparin 5000 units twice a day, and Protonix 40 mg once a day. I will review echocardiographic study, obtain serum D-dimer, consider abdominal ultrasound to rule out cholelithiasis. Jostin Mccrary MD
--- NOTE | 2017-08-01 22:19 | CARD ---
APPROVED REPORT EKG Measurement Heart [id number] <Conclusion> Normal sinus rhythm Minimal voltage criteria for LVH, may be normal variant Borderline ECG
== END 2017-08-01 17:46 | disposition home or self-care (01) ==
LOC: ED 17:54 → ERH 22:55 → 3RSO 08-01 00:02
PROVIDERS: ADMIT Internal Medicine; ATTEND Internal Medicine
DX: R07.2 Precordial pain (principal); G89.29 Other chronic pain; K21.9 Gastro-esophageal reflux disease without esophagitis; M17.12 Unilateral primary osteoarthritis, left knee; F17.290 Nicotine dependence, other tobacco product, uncomplicated; E66.9 Obesity, unspecified; Z68.38 Body mass index [BMI] 38.0-38.9, adult; Z96.652 Presence of left artificial knee joint; Z82.49 Family history of ischemic heart disease and other diseases of the circulatory system
CPT/HCPCS: 36415; 71010; 80053; 80061; 82550; 83036; 83615; 83690; 83735; 84100; 84436; 84443; 84484; 85025; 85378; 86140; 93005; 93306; 96374; 99285; G0378; J1885

== ENCOUNTER 2018-01-08 05:13 | Emergency (ER) | payer MEDICARE ==
[2018-01-08 05:14] VITALS: BMI 38.6
[2018-01-08 06:05] VITALS: BP 139/98; PULSE 74; RESP 18; TEMP 97.9; O2SAT 99
[2018-01-08] MEDS ORDERED: Oxycodone/Acetaminophen 5/325 mg Tab PO STA (06:05)
--- NOTE | 2018-01-08 06:15 | ED PDOC ---
Arrival/HPI - General Chief Complaint: Lower Extremity Problem/Injury Time Seen by Provider: 01/08/18 05:49 Historian: Patient - History of Present Illness Narrative History of Present Illness (Text): 01/08/18 06:03 Biju Mcnamara is a 57 year old male who presents to the Emergency department complaining of chronic left knee pain tonight. Patient states he has a history of chronic left knee pain secondary to an old sports injury for which he has been seen and evaluated by his orthopedist. Patient states he wears a left knee brace regularly but reports pain worsened tonight. Patient denies any calf pain, decreased range of motion, weakness/numbness, back pain, or any other complaints. Time/Duration: Other (tonight) Symptom Onset: Gradual Symptom Course: Unchanged, Other (Chronic) Activities at Onset: Light Context: Standing, Walking, Home Past Medical History - Provider Review Nursing Documentation Reviewed: Yes - Infectious Disease Hx of Infectious Diseases: None - Cardiac Hx Cardiac Disorders: No - Pulmonary Hx Respiratory Disorders: No - Neurological Hx Neurological Disorder: No - HEENT Hx HEENT Disorder: No - Renal Hx Renal Disorder: No - Endocrine/Metabolic Hx Endocrine Disorders: No - Hematological/Oncological Hx Blood Disorders: No - Integumentary Hx Dermatological Disorder: No - Musculoskeletal/Rheumatological Hx Musculoskeletal Disorders: Yes Hx Arthritis: Yes (l knee) Other/Comment: LEFT KNEE SURGERY; BACK SURGERY; left hand surgery - Gastrointestinal Hx Gastrointestinal Disorders: No - Genitourinary/Gynecological Hx Genitourinary Disorders: No - Psychiatric Hx Psychophysiologic Disorder: No Hx Substance Use: No - Surgical History Hx Joint Replacement: Yes Hx Orthopedic Surgery: Yes (left knee x2) Other/Comment: left hand; left knee - Anesthesia Hx Anesthesia: No Hx Anesthesia Reactions: No Hx Malignant Hyperthermia: No Family/Social History - Physician Review Nursing Documentation Reviewed: Yes Family/Social History: Unknown Family HX Smoking Status: cigar Hx Alcohol Use: Yes (occasional) Frequency of alcohol use: Socially Hx Substance Use: No Allergies/Home Meds Allergies/Adverse Reactions: Allergies No Known Allergies Allergy (Verified 01/08/18 05:56) Review of Systems - Physician Review All systems were reviewed & negative as marked: Yes - Review of Systems Constitutional: Normal. absent: Fevers Eyes: Normal ENT: Normal Respiratory: Normal. absent: SOB, Cough Cardiovascular: Normal. absent: Chest Pain Gastrointestinal: Normal. absent: Abdominal Pain, Diarrhea, Nausea, Vomiting Genitourinary Male: Normal. absent: Dysuria, Frequency, Hematuria, Urinary Output Changes Musculoskeletal: Arthralgias (+left knee pain). absent: Back Pain, Neck Pain Skin: Normal. absent: Rash Neurological: Normal. absent: Headache, Dizziness Endocrine: Normal Hemo/Lymphatic: Normal Psychiatric: Normal Physical Exam Vital Signs Reviewed: Yes Vital Signs Temp Pulse Resp BP Pulse Ox 01/08/18 06:04 97.9 F 74 18 139/98 H 99 Temperature: Afebrile Blood Pressure: Normal Pulse: Regular Respiratory Rate: Normal Appearance: Positive for: Well-Appearing, Non-Toxic, Comfortable Pain Distress: None Mental Status: Positive for: Alert and Oriented X 3 - Systems Exam Head: Present: Atraumatic, Normocephalic Pupils: Present: PERRL Extroacular Muscles: Present: EOMI Conjunctiva: Present: Normal Mouth: Present: Moist Mucous Membranes Neck: Present: Normal Range of Motion. No: Meningeal Signs, MIDLINE TENDERNESS , Paraspinal Tenderness Respiratory/Chest: Present: Clear to Auscultation, Good Air Exchange. No: Respiratory Distress, Accessory Muscle Use Cardiovascular: Present: Regular Rate and Rhythm, Normal S1, S2. No: Murmurs Abdomen: No: Tenderness, Distention, Peritoneal Signs Back: Present: Normal Inspection Upper Extremity: Present: Normal Inspection. No: Cyanosis, Edema Lower Extremity: Present: NORMAL PULSES, Normal ROM, Swelling (Some swelling to left knee), Neurovascularly Intact, Capillary Refill < 2 s. No: Edema, CALF TENDERNESS, Cyanosis, Tenderness, Erythema, Deformity, Temperature Abnormalties Neurological: Present: GCS=15, CN II-XII Intact, Speech Normal Skin: Present: Warm, Dry, Normal Color. No: Rashes Psychiatric: Present: Alert, Oriented x 3, Normal Insight, Normal Concentration Medical Decision Making ED Course and Treatment: 01/08/18 06:03 Impression: 57 year old male complaining of chronic left knee pain tonight. Differential Diagnosis included but are not limited to: knee pain Plan: -- Decadron -- Percocet -- Toradol -- Reassess and disposition Progress Notes: - Medication Orders Current Medication Orders: Discontinued Medications Dexamethasone (Decadron Inj) 10 mg IM STAT STA Stop: 01/08/18 06:06 Last Admin: 01/08/18 06:24 Dose: 10 mg IM Administration Charges Document 01/08/18 06:24 AD (Rec: 01/08/18 06:24 AD [id number]) Injection Site MAR Injection Site Left Gluteus Oskar Charges for Administration # of IM Administrations 1 Ketorolac Tromethamine (Toradol) 30 mg IM ONCE ONE Stop: 01/08/18 06:06 Last Admin: 01/08/18 06:24 Dose: 30 mg MAR Pain Assessment Document 01/08/18 06:24 AD (Rec: 01/08/18 06:25 AD [id number]) Pain Reassessment Is this a pain reassessment? No Presence of Pain Presence of Pain Yes Pain Scale Used Pain Scale Used Numeric Location Left, Right or Bilateral Left Pain Location Body Site Knee Description Intensity of Pain at present 8 Pain Behavior Facial Grimacing Aggravating Factors Exercise/Activity IM Administration Charges Document 01/08/18 06:24 AD (Rec: 01/08/18 06:25 AD [id number]) Injection Site MAR Injection Site Left Deltoid Charges for Administration # of IM Administrations 1 Oxycodone/Acetaminophen (Percocet 5/325 Mg Tab) 1 tab PO STAT STA Stop: 01/08/18 06:06 Last Admin: 01/08/18 06:25 Dose: 1 tab MAR Pain Assessment Document 01/08/18 06:25 AD (Rec: 01/08/18 06:25 AD [id number]) Pain Reassessment Is this a pain reassessment? No Presence of Pain Presence of Pain Yes Pain Scale Used Pain Scale Used Numeric Location Left, Right or Bilateral Left Pain Location Body Site Knee Description Pain Behavior Facial Grimacing - Scribe Statement The provider has reviewed the documentation as recorded by the Scribchar Ross All medical record entries made by the Salimaibchar were at my direction and personally dictated by me. I have reviewed the chart and agree that the record accurately reflects my personal performance of the history, physical exam, medical decision making, and the department course for this patient. I have also personally directed, reviewed, and agree with the discharge instructions and disposition. Disposition/Present on Arrival - Present on Arrival Any Indicators Present on Arrival: No History of DVT/PE: No History of Uncontrolled Diabetes: No Urinary Catheter: No History of Decub. Ulcer: No History Surgical Site Infection Following: None - Disposition Have Diagnosis and Disposition been Completed?: Yes Diagnosis: Knee arthropathy Disposition: HOME/ ROUTINE Disposition Time: 06:30 Condition: GOOD Discharge Instructions (ExitCare): Knee Pain (DC) Prescriptions: oxyCODONE/Acetaminophen [Percocet 5/325 mg Tab] 1 ea PO QID #10 tab Forms: [employer] (American)
== END 2018-01-08 07:41 | disposition home or self-care (01) ==
LOC: ED 05:13
DX: M17.12 Unilateral primary osteoarthritis, left knee (principal)
CPT/HCPCS: 96372; 99284; J1100; J1885

== ENCOUNTER 2018-02-24 16:16 | Emergency (ER) | payer MEDICARE ==
[2018-02-24 16:17] VITALS: BMI 38.6
[2018-02-24 16:27] VITALS: RESP 18
--- NOTE | 2018-02-24 19:04 | ED PDOC ---
Arrival/HPI - General Chief Complaint: Lower Extremity Problem/Injury Time Seen by Provider: 02/24/18 17:42 Historian: Patient - History of Present Illness Narrative History of Present Illness (Text): 02/24/18 19:17 57-year-old male presents today with Left knee pain. Patient states he's had chronic knee pain for a while now. Patient states that today he was walking felt as if he had a little bit. Patient states he was told he needed a knee replacement in the past but has been unable to follow up with an orthopedist because he has been traveling for work. Patient denies calf pain. He denies numbness weakness or tingling in the extremities. Patient denies fevers or chills. No chest pain or shortness of breath. No other complaints Past Medical History - Provider Review Nursing Documentation Reviewed: Yes - Travel History Have you recently traveled outside [place] w/in the past 3 mons?: No - Infectious Disease Hx of Infectious Diseases: None - Tetanus Immunization Tetanus Immunization: Unknown - Cardiac Hx Cardiac Disorders: No - Pulmonary Hx Respiratory Disorders: No - Neurological Hx Neurological Disorder: No - HEENT Hx HEENT Disorder: No - Renal Hx Renal Disorder: No - Endocrine/Metabolic Hx Endocrine Disorders: No - Hematological/Oncological Hx Blood Disorders: No - Integumentary Hx Dermatological Disorder: No - Musculoskeletal/Rheumatological Hx Musculoskeletal Disorders: Yes Hx Arthritis: Yes (l knee) Other/Comment: LEFT KNEE SURGERY; BACK SURGERY; left hand surgery - Gastrointestinal Hx Gastrointestinal Disorders: No - Genitourinary/Gynecological Hx Genitourinary Disorders: No - Psychiatric Hx Psychophysiologic Disorder: No Hx Substance Use: No - Surgical History Hx Joint Replacement: Yes Hx Orthopedic Surgery: Yes (left knee x2) Other/Comment: left hand; left knee - Anesthesia Hx Anesthesia: No Hx Anesthesia Reactions: No Hx Malignant Hyperthermia: No Family/Social History - Physician Review Nursing Documentation Reviewed: Yes Family/Social History: Unknown Family HX Smoking Status: Current Some Days Smoker Hx Alcohol Use: Yes (occasional) Hx Substance Use: No Allergies/Home Meds Allergies/Adverse Reactions: Allergies No Known Allergies Allergy (Verified 02/24/18 16:27) Review of Systems - Review of Systems Constitutional: absent: Fatigue, Fevers Respiratory: absent: SOB, Cough Cardiovascular: absent: Chest Pain, Palpitations Gastrointestinal: absent: Abdominal Pain, Nausea, Vomiting Genitourinary Male: absent: Dysuria Musculoskeletal: Arthralgias. absent: Back Pain, Neck Pain Skin: absent: Rash, Pruritis Neurological: absent: Headache, Dizziness Psychiatric: absent: Anxiety, Depression Physical Exam Vital Signs Reviewed: Yes Vital Signs Temp Pulse Resp BP Pulse Ox 02/24/18 16:24 99.7 F H 82 18 143/82 97 Temperature: Afebrile Blood Pressure: Normal Pulse: Regular Respiratory Rate: Normal Appearance: Positive for: Well-Appearing, Non-Toxic, Comfortable Pain Distress: None Mental Status: Positive for: Alert and Oriented X 3 - Systems Exam Head: Present: Atraumatic Mouth: Present: Moist Mucous Membranes Neck: Present: Normal Range of Motion Respiratory/Chest: Present: Clear to Auscultation, Good Air Exchange. No: Respiratory Distress, Accessory Muscle Use Cardiovascular: Present: Regular Rate and Rhythm, Normal S1, S2. No: Murmurs Abdomen: No: Tenderness, Rebound, Guarding Back: Present: Normal Inspection Upper Extremity: Present: Normal Inspection Lower Extremity: Present: CALF TENDERNESS, Normal ROM, Tenderness (left knee; + minimal tenderness to the lateral aspect of the knee; full rom of knee; sensation and distal pulses intact; no calf tenderness, no erythema; sensation and distal pulses intact; ambulating with steady gait. ), Neurovascularly Intact , Capillary Refill < 2 s. No: NORMAL PULSES, Swelling, Erythema, Deformity Neurological: Present: GCS=15, Speech Normal Skin: Present: Warm, Dry, Normal Color. No: Rashes Psychiatric: Present: Alert, Oriented x 3 Medical Decision Making ED Course and Treatment: 02/24/18 19:04 Patient nontoxic well-appearing in no distress with stable vital signs X-rays of the knee: no fracture, + arthritis toradol IM Patient refused knee immobilizer and Crutches given for ambulation. pt states he has both at home. does not want more. pt was advised rest,ice,elevation. pt was advised to use his crutches at home and his knee immobilizer. pt is ambulating with steady gait. I discussed all results with patient advised to followup with the orthopedist for the next 2 days. Return if symptoms worsen persist or new symptoms develop i advised the patient that although the xrays show no fracture; there is still a possibility for ligamentous or tendon injury the patient must see the orthopedist for further evaluation. Patient verbalizes understanding of discharge instructions and need for immediate followup. all aspects of this case were discussed the attending of record. Impression: knee pain Motrin every 6 hours as needed for pain Rest, ice, compression, elevation Use crutches for ambulation Followup with the orthopedist within the next 2 days Followup with primary care physician within the next 2 days Return if symptoms worsen persist or if new symptoms develop - RAD Interpretation Radiology Orders: 02/24/18 17:42 KNEE WITH PATELLA LEFT 3 VIEW [RAD] Stat - Medication Orders Current Medication Orders: Discontinued Medications Ketorolac Tromethamine (Toradol) 60 mg IM STAT STA Stop: 02/24/18 17:43 Last Admin: 02/24/18 18:00 Dose: 60 mg MAR Pain Assessment Document 02/24/18 18:00 (Rec: 02/24/18 18:01 [place] [id number]) Pain Reassessment Is this a pain reassessment? Yes Sleep Is patient sleeping during reassessment? No Presence of Pain Presence of Pain Yes IM Administration Charges Document 02/24/18 18:00 (Rec: 02/24/18 18:01 [place] [id number]) Injection Site MAR Injection Site Left Deltoid Charges for Administration # of IM Administrations 1 Disposition/Present on Arrival - Present on Arrival Any Indicators Present on Arrival: No History of DVT/PE: No History of Uncontrolled Diabetes: No Urinary Catheter: No History of Decub. Ulcer: No History Surgical Site Infection Following: None - Disposition Have Diagnosis and Disposition been Completed?: Yes Diagnosis: Knee pain, Arthritis Disposition: HOME/ ROUTINE Disposition Time: 19:00 Patient Plan: Discharge Condition: FAIR Discharge Instructions (ExitCare): Knee Pain (DC) Additional Instructions: Motrin every 6 hours as needed for pain Rest, ice, compression, elevation Use crutches for ambulation Followup with the orthopedist within the next 2 days Followup with primary care physician within the next 2 days Return if symptoms worsen persist or if new symptoms develop Prescriptions: Ibuprofen [Motrin] 600 mg PO Q6H PRN #20 tab PRN Reason: pain/fever reduction Referrals: [facility] at [facility] [Outside] - Follow up with primary [facility] [place] [Outside] - Follow up with primary Tod Pena MD [Staff Provider] - Follow up with primary Dudley Rhodes MD [Staff Provider] - Follow up with primary Forms: [employer] (Sami), WORK NOTE
[2018-02-24 19:13] VITALS: BP 138/81; PULSE 78; TEMP 99
[2018-02-24 19:14] VITALS: O2SAT 97
--- NOTE | 2018-02-25 11:37 | RAD ---
PROCEDURE: Left Knee Radiographs. HISTORY: Pain. COMPARISON: 07/14/2017 FINDINGS: BONES: Normal. No fracture. JOINTS: Degenerative changes are seen in all 3 compartments. There is joint space narrowing and osteophyte formation. JOINT EFFUSION: None. OTHER FINDINGS: Bipartite patella IMPRESSION: Osteoarthritis
== END 2018-02-24 19:13 | disposition home or self-care (01) ==
LOC: ED 16:16
DX: M25.562 Pain in left knee (principal); M17.12 Unilateral primary osteoarthritis, left knee
CPT/HCPCS: 73562; 96372; 99284; J1885

== ENCOUNTER 2018-04-25 13:42 | Emergency (ER) | payer MEDICARE ==
[2018-04-25 14:01] VITALS: RESP 18; TEMP 98.1; BMI 40.4
--- NOTE | 2018-04-25 14:01 | ED PDOC ---
Arrival/HPI - General Time Seen by Provider: 04/25/18 13:54 Historian: Patient - History of Present Illness Narrative History of Present Illness (Text): 04/25/18 14:05 57 year old male, whose PMH includes arthritis, who presents to the emergency department complaining of chronic right knee pain. Patient reports he is scheduled to have surgery this May but decided to come to the emergency department because the pain has become worse. Patient denies any falls or trauma. Patient has no other complaints. Symptom Onset: Gradual Symptom Course: Unchanged Past Medical History - Provider Review Nursing Documentation Reviewed: Yes - Infectious Disease Hx of Infectious Diseases: None - Tetanus Immunization Tetanus Immunization: Unknown - Cardiac Hx Cardiac Disorders: No - Pulmonary Hx Respiratory Disorders: No - Neurological Hx Neurological Disorder: No - HEENT Hx HEENT Disorder: No - Renal Hx Renal Disorder: No - Endocrine/Metabolic Hx Endocrine Disorders: No - Hematological/Oncological Hx Blood Disorders: No - Integumentary Hx Dermatological Disorder: No - Musculoskeletal/Rheumatological Hx Musculoskeletal Disorders: Yes Hx Arthritis: Yes (l knee) Other/Comment: LEFT KNEE SURGERY; BACK SURGERY; left hand surgery - Gastrointestinal Hx Gastrointestinal Disorders: No - Genitourinary/Gynecological Hx Genitourinary Disorders: No - Psychiatric Hx Psychophysiologic Disorder: No Hx Substance Use: No - Surgical History Hx Joint Replacement: Yes Hx Orthopedic Surgery: Yes (left knee x2) Other/Comment: left hand; left knee - Anesthesia Hx Anesthesia: No Hx Anesthesia Reactions: No Hx Malignant Hyperthermia: No Family/Social History - Physician Review Nursing Documentation Reviewed: Yes Family/Social History: Unknown Family HX Smoking Status: Current Some Days Smoker Hx Alcohol Use: Yes (occasional) Hx Substance Use: No Allergies/Home Meds Allergies/Adverse Reactions: Allergies No Known Allergies Allergy (Verified 04/25/18 14:01) Review of Systems - Physician Review All systems were reviewed & negative as marked: Yes - Review of Systems Respiratory: absent: SOB Cardiovascular: absent: Chest Pain Musculoskeletal: Other (right knee pain ) Physical Exam Vital Signs Reviewed: Yes Vital Signs Temp Pulse Resp BP Pulse Ox 04/25/18 15:43 98.1 F 84 18 135/80 100 04/25/18 13:53 98.1 F 86 18 144/83 99 Temperature: Afebrile Blood Pressure: Normal Pulse: Regular Respiratory Rate: Normal Appearance: Positive for: Well-Appearing, Non-Toxic, Comfortable Pain Distress: None Mental Status: Positive for: Alert and Oriented X 3 - Systems Exam Head: Present: Atraumatic, Normocephalic Pupils: Present: PERRL Extroacular Muscles: Present: EOMI Conjunctiva: Present: Normal Lower Extremity: Present: Normal Inspection, NORMAL PULSES, Normal ROM, Neurovascularly Intact, Capillary Refill < 2 s, Other (wearing knee brace from right side ). No: Edema, Cyanosis, Erythema, Deformity Neurological: Present: GCS=15, CN II-XII Intact, Speech Normal Skin: Present: Warm, Dry, Normal Color. No: Rashes Psychiatric: Present: Alert, Oriented x 3, Normal Insight, Normal Concentration Medical Decision Making ED Course and Treatment: 04/25/18 Impression: 57 year old male with right knee brace complaining of right knee pain and is scheduled for surgery in May. Plan: -- Toradol -- Reassess and disposition Progress Notes: 04/25/18 14:10 Patient decline knee x-ray. 04/25/18 16:20 chronic knee pain h/o o farthritis no new trauma. declines xr. offered crutches and immobizler. - Medication Orders Current Medication Orders: Discontinued Medications Ketorolac Tromethamine (Toradol) 30 mg IM STAT STA Stop: 04/25/18 14:10 Last Admin: 04/25/18 14:22 Dose: 30 mg MAR Pain Assessment Document 04/25/18 14:22 [facility] (Rec: 04/25/18 14:23 [facility]) Pain Reassessment Is this a pain reassessment? No Sleep Is patient sleeping during reassessment? No Presence of Pain Presence of Pain Yes Pain Scale Used Pain Scale Used Numeric Location Left, Right or Bilateral Left Pain Location Body Site Knee Description Description Intermittent Pain Behavior Guarding Aggravating Factors Walking IM Administration Charges Document 04/25/18 14:22 [facility] (Rec: 04/25/18 14:23 [facility] Injection Site MAR Injection Site Left Gluteus Oskar Charges for Administration # of IM Administrations 1 - Scribe Statement The provider has reviewed the documentation as recorded by the Scribe Milly Chapin Provider Scribe Attestation: All medical record entries made by the Scribe were at my direction and personally dictated by me. I have reviewed the chart and agree that the record accurately reflects my personal performance of the history, physical exam, medical decision making, and the department course for this patient. I have also personally directed, reviewed, and agree with the discharge instructions and disposition. Disposition/Present on Arrival - Present on Arrival Any Indicators Present on Arrival: No History of DVT/PE: No History of Uncontrolled Diabetes: No Urinary Catheter: No History Surgical Site Infection Following: None - Disposition Have Diagnosis and Disposition been Completed?: Yes Diagnosis: Knee pain Disposition: HOME/ ROUTINE Disposition Time: 03:00 Patient Problems: Current Active Problems Problem Status Onset Knee pain Acute Condition: STABLE Discharge Instructions (ExitCare): Chronic Knee Pain Additional Instructions: please follow up with your doctor/clinic and surgeon return to er with worsening symptoms or concerns. Prescriptions: Naproxen [Naprosyn] 500 mg PO BID PRN #14 tablet PRN Reason: Pain, Mild (1-3) Referrals: [facility] [Outside] - Follow up with primary [facility] at [facility] [place] [Outside] - Follow up with primary Henok Miller DO [Staff Provider] - Follow up with primary Forms: [employer] (Indonesian)
[2018-04-25 15:44] VITALS: O2SAT 100
[2018-04-25 19:06] VITALS: BP 130/80; PULSE 81
== END 2018-04-25 16:00 | disposition home or self-care (01) ==
LOC: ED 13:42
DX: M25.561 Pain in right knee (principal)
CPT/HCPCS: 96372; 99283; J1885

== ENCOUNTER 2018-09-28 21:28 | Emergency (ER) | payer MEDICARE ==
[2018-09-28 22:01] VITALS: BMI 39.2
[2018-09-28 22:28] VITALS: RESP 16; O2SAT 98
--- NOTE | 2018-09-28 22:42 | ED PDOC ---
Arrival/HPI - General Chief Complaint: Back Pain Time Seen by Provider: 09/28/18 21:40 Historian: Patient - History of Present Illness Narrative History of Present Illness (Text): 09/28/18 23:27 57yr old male presents today with 1-2 week history of neck pain. pt denies trauma or injury. no fever/chills. pt states after returning from [place] he noticed slightly increasing pain to the left side of the neck. pt states that he has not taken any medications for pain at home. Patient states that the pain starts to the posterior aspect of the neck on the left side radiates towards the left shoulder and to the upper back traveling all along the trapezius muscle. patient denies numbness weakness or tingling in the extremities. Denies chest pain or shortness of breath. Patient states the pain is worse first thing in the morning he feels like the neck is stiff and is unable to turn his neck towards the left. no headaches dizziness or weakness. No other complaints Past Medical History - Provider Review Nursing Documentation Reviewed: Yes - Travel History Have you recently traveled outside [place] w/in the past 3 mons?: No - Infectious Disease Hx of Infectious Diseases: None - Tetanus Immunization Tetanus Immunization: Unknown - Cardiac Hx Cardiac Disorders: No - Pulmonary Hx Respiratory Disorders: No - Neurological Hx Neurological Disorder: No - HEENT Hx HEENT Disorder: No - Renal Hx Renal Disorder: No - Endocrine/Metabolic Hx Endocrine Disorders: No - Hematological/Oncological Hx Blood Disorders: No - Integumentary Hx Dermatological Disorder: No - Musculoskeletal/Rheumatological Hx Musculoskeletal Disorders: Yes Hx Arthritis: Yes (l knee) Other/Comment: LEFT KNEE SURGERY; BACK SURGERY; left hand surgery - Gastrointestinal Hx Gastrointestinal Disorders: No - Genitourinary/Gynecological Hx Genitourinary Disorders: No - Psychiatric Hx Psychophysiologic Disorder: No Hx Substance Use: No - Surgical History Hx Joint Replacement: Yes Hx Orthopedic Surgery: Yes (left knee x2) Other/Comment: left hand; left knee - Anesthesia Hx Anesthesia: No Hx Anesthesia Reactions: No Hx Malignant Hyperthermia: No Family/Social History - Physician Review Nursing Documentation Reviewed: Yes Family/Social History: Unknown Family HX Smoking Status: Current Some Days Smoker Hx Alcohol Use: Yes (occasional) Hx Substance Use: No Allergies/Home Meds Allergies/Adverse Reactions: Allergies No Known Allergies Allergy (Verified 09/28/18 22:01) Review of Systems - Review of Systems Constitutional: absent: Fatigue, Fevers Eyes: absent: Vision Changes, Photophobia, Eye Pain ENT: absent: Sinus Congestion Respiratory: absent: SOB, Cough Cardiovascular: absent: Chest Pain, Palpitations Gastrointestinal: absent: Abdominal Pain, Nausea, Vomiting Genitourinary Male: absent: Dysuria, Frequency, Hematuria Musculoskeletal: Neck Pain. absent: Arthralgias, Back Pain Skin: absent: Rash, Pruritis Neurological: absent: Headache, Dizziness Psychiatric: absent: Anxiety, Depression Physical Exam Vital Signs Reviewed: Yes Vital Signs Temp Pulse Resp BP Pulse Ox 09/28/18 22:08 98.0 F 81 16 139/92 H 98 Temperature: Afebrile Blood Pressure: Hypertensive Pulse: Regular Respiratory Rate: Normal Appearance: Positive for: Well-Appearing, Non-Toxic, Comfortable Pain Distress: None Mental Status: Positive for: Alert and Oriented X 3 - Systems Exam Head: Present: Atraumatic Mouth: Present: Moist Mucous Membranes Neck: Present: Normal Range of Motion, Paraspinal Tenderness (+ ttp over the left sided of trapezius), Trachea Midline. No: MIDLINE TENDERNESS Respiratory/Chest: Present: Clear to Auscultation, Good Air Exchange. No: Respiratory Distress, Accessory Muscle Use Cardiovascular: Present: Regular Rate and Rhythm, Normal S1, S2. No: Murmurs Upper Extremity: Present: Normal ROM Lower Extremity: Present: Normal ROM Neurological: Present: GCS=15 Skin: Present: Warm, Dry, Normal Color. No: Rashes Psychiatric: Present: Alert, Oriented x 3 Medical Decision Making ED Course and Treatment: 09/28/18 23:40 Patient nontoxic well-appearing in no distress with stable vital signs. Toradol, Flexeril, percocet given po pt states he is not driving home and will have someone drive him home. Patient reassessment: Feeling slightly with medications ambulating with a steady gait. Muscle strength 5 out of 5 bilaterally. I advised to followup with the orthopedist within the next 2 days. Return if symptoms worsen persist or new symptoms develop Impression: neck pain Motrin every 6 hours as needed for pain Flexeril one tablet every 8 hours as needed for muscle spasms: May cause drowsiness percocet; one tablet every 6 hours as needed for moderate to severe pain: May cause drowsiness Followup with the back specialist within the next 2 days Followup with primary care physician within the next 2 days Return if symptoms worsen persist or if new symptoms develop - Medication Orders Current Medication Orders: Cyclobenzaprine HCl (Flexeril) 10 mg PO STAT STA Stop: 09/28/18 22:27 Ketorolac Tromethamine (Toradol) 60 mg IM STAT STA Stop: 09/28/18 22:26 Disposition/Present on Arrival - Present on Arrival Any Indicators Present on Arrival: No History of DVT/PE: No History of Uncontrolled Diabetes: No Urinary Catheter: No History of Decub. Ulcer: No History Surgical Site Infection Following: None - Disposition Have Diagnosis and Disposition been Completed?: Yes Diagnosis: Neck pain Disposition: HOME/ ROUTINE Disposition Time: 22:26 Patient Plan: Discharge Condition: GOOD Discharge Instructions (ExitCare): Generalized Neck Pain Additional Instructions: Motrin every 6 hours as needed for pain Flexeril one tablet every 8 hours as needed for muscle spasms: May cause drowsiness percocet; one tablet every 6 hours as needed for moderate to severe pain: May cause drowsiness Followup with the back specialist within the next 2 days Followup with primary care physician within the next 2 days Return if symptoms worsen persist or if new symptoms develop Prescriptions: Cyclobenzaprine [Cyclobenzaprine HCl] 10 mg PO Q8 #10 tab Ibuprofen [Motrin] 600 mg PO Q6H PRN #20 tab PRN Reason: pain/fever reduction oxyCODONE/Acetaminophen [Percocet 5/325 mg Tab] 1 tab PO Q6H PRN #6 tab PRN Reason: moderate to severe pain Referrals: Keith Liang APN [Primary Care Provider] - Follow up with primary Darius Park MD [Staff Provider] - Follow up with primary Forms: [employer] (Mexican), WORK NOTE
[2018-09-28] MEDS ORDERED: Oxycodone/Acetaminophen 5/325 mg Tab PO STA (23:26)
[2018-09-29 00:13] VITALS: BP 156/98; PULSE 76; TEMP 98.1
== END 2018-09-29 00:16 | disposition home or self-care (01) ==
LOC: ED 21:28
DX: M54.2 Cervicalgia (principal)
CPT/HCPCS: 96372; 99281; J1885

== ENCOUNTER → 2018-10-08 | Emergency (ER) | payer MEDICARE | LOC: ED 03:19 ==

== ENCOUNTER 2018-11-17 16:07 | Emergency (ER) | payer MEDICARE ==
[2018-11-17 16:13] VITALS: BMI 39.4
--- NOTE | 2018-11-17 16:27 | ED PDOC ---
Arrival/HPI - General Chief Complaint: Cough, Cold, Congestion Time Seen by Provider: 11/17/18 16:12 Historian: Patient - History of Present Illness Time/Duration: Other (4-5 days) Symptom Onset: Gradual Symptom Course: Unchanged Severity Level: Mild Associated Symptoms (Text): 11/17/18 16:26 Patient complains of a 4-5-day history of a cough congestion URI sore throat feeling feverish chills myalgias and arthralgias. No chest pain. No shortness of breath. Past Medical History - Infectious Disease Hx of Infectious Diseases: None - Tetanus Immunization Tetanus Immunization: Unknown - Cardiac Hx Cardiac Disorders: No - Pulmonary Hx Respiratory Disorders: No - Neurological Hx Neurological Disorder: No - HEENT Hx HEENT Disorder: No - Renal Hx Renal Disorder: No - Endocrine/Metabolic Hx Endocrine Disorders: No - Hematological/Oncological Hx Blood Disorders: No - Integumentary Hx Dermatological Disorder: No - Musculoskeletal/Rheumatological Hx Musculoskeletal Disorders: Yes Hx Arthritis: Yes (l knee) Other/Comment: LEFT KNEE SURGERY; BACK SURGERY; left hand surgery - Gastrointestinal Hx Gastrointestinal Disorders: No - Genitourinary/Gynecological Hx Genitourinary Disorders: No - Psychiatric Hx Psychophysiologic Disorder: No Hx Substance Use: No - Surgical History Hx Joint Replacement: Yes Hx Orthopedic Surgery: Yes (left knee x2) Other/Comment: left hand; left knee - Anesthesia Hx Anesthesia: Yes Hx Anesthesia Reactions: No Hx Malignant Hyperthermia: No Family/Social History - Physician Review Nursing Documentation Reviewed: Yes Family/Social History: Unknown Family HX Smoking Status: Current Some Days Smoker Hx Alcohol Use: Yes (occasional) Hx Substance Use: No Allergies/Home Meds Allergies/Adverse Reactions: Allergies No Known Allergies Allergy (Verified 11/17/18 16:13) Review of Systems - Physician Review All systems were reviewed & negative as marked: Yes - Review of Systems Constitutional: Fatigue, Fevers ENT: Sore Throat, Rhinorrhea Respiratory: Cough. absent: SOB, Sputum, Wheezing Cardiovascular: absent: Chest Pain Musculoskeletal: Arthralgias, Myalgias Neurological: absent: Headache, Dizziness, Focal Weakness Physical Exam Vital Signs Temp Pulse Resp BP Pulse Ox 11/17/18 16:17 98.3 F 78 18 148/96 H 98 Temperature: Afebrile Blood Pressure: Normal Pulse: Regular Respiratory Rate: Normal Appearance: Positive for: Well-Appearing, Non-Toxic, Comfortable, Other (Obese) Pain Distress: None Mental Status: Positive for: Alert and Oriented X 3 - Systems Exam Head: Present: Atraumatic, Normocephalic Pupils: Present: PERRL Extroacular Muscles: Present: EOMI Conjunctiva: Present: Normal Ears: Present: NORMAL TM, Normal Canal. No: Erythema, TM Bulging Mouth: Present: Moist Mucous Membranes Pharnyx: Present: ERYTHEMA. No: EXUDATE, TONSILS ENLARGED Nose (Internal): Present: Clear Mucous, Rhinorrhea, Other (Congested) Neck: Present: Normal Range of Motion Respiratory/Chest: Present: Clear to Auscultation, Good Air Exchange. No: Respiratory Distress, Accessory Muscle Use Cardiovascular: Present: Regular Rate and Rhythm, Normal S1, S2. No: Murmurs Neurological: Present: GCS=15, CN II-XII Intact, Speech Normal Skin: Present: Warm, Dry, Normal Color. No: Rashes Psychiatric: Present: Alert, Oriented x 3, Normal Insight, Normal Concentration Medical Decision Making ED Course and Treatment: 11/17/18 16:56 Rapid flu and rapid strep are negative. Chest x-ray shows no infiltrate. Patient wants an antibiotic, even though this is most likely viral in origin. - RAD Interpretation Radiology Orders: 11/17/18 16:25 CHEST TWO VIEWS (PA/LAT) [RAD] Stat Chest 2 view shows no infiltrate effusion or cardiomegaly. Area Sales Manager: ED Physician Disposition/Present on Arrival - Present on Arrival Any Indicators Present on Arrival: No History of DVT/PE: No History of Uncontrolled Diabetes: No Urinary Catheter: No History of Decub. Ulcer: No History Surgical Site Infection Following: None - Disposition Have Diagnosis and Disposition been Completed?: Yes Diagnosis: Upper respiratory tract infection, Bronchitis, Sinusitis Disposition: HOME/ ROUTINE Disposition Time: 16:57 Patient Plan: Discharge Condition: GOOD Discharge Instructions (ExitCare): Sinusitis in Adults, Acute Bronchitis, Bacterial Upper Respiratory Infection, Adult Additional Instructions: Symptomatic treatment. Tylenol or Advil as directed on bottle as needed. Follow-up with PMD. Follow-up in ER as needed. Hypertension check with PMD. Prescriptions: Amoxicillin [Amoxil 250 mg Cap] 250 mg PO TID #21 cap Benzonatate [Tessalon Perles] 100 mg PO Q8 #30 sgl Referrals: Keith Liang APN [Primary Care Provider] - Follow up with primary Forms: [employer] (Danish)
[2018-11-17 16:39] VITALS: BP 148/96; PULSE 78; RESP 18; TEMP 98.3; O2SAT 98
[2018-11-17 16:51] LABS: INFLUENZA A B NEGATIVE FOR FLU A/B (NEGATIVE)
--- NOTE | 2018-11-17 17:05 | RAD ---
Date of service: 11/17/2018 HISTORY: cough COMPARISON: 07/31/2017 TECHNIQUE: Chest PA and lateral FINDINGS: LUNGS: No active pulmonary disease. PLEURA: No significant pleural effusion identified. No pneumothorax apparent. CARDIOVASCULAR: No aortic atherosclerotic calcification present. Normal cardiac size. No pulmonary vascular congestion. OSSEOUS STRUCTURES: No significant abnormalities. VISUALIZED UPPER ABDOMEN: Normal. OTHER FINDINGS: None. IMPRESSION: No active disease.
== END 2018-11-17 17:06 | disposition home or self-care (01) ==
LOC: ED 16:07
DX: J40 Bronchitis, not specified as acute or chronic (principal); J01.90 Acute sinusitis, unspecified; F17.210 Nicotine dependence, cigarettes, uncomplicated